=== PATIENT | female | born 1960 | race Caucasian/White ===

== ENCOUNTER 2023-01-22 11:44 | Emergency (ER) | payer OTHER, SELFPAY ==
[2023-01-22 12:09] VITALS: BP 151/83; PULSE 75; RESP 18; TEMP 36.1; O2SAT 94
--- NOTE | 2023-01-22 12:44 | ED.GENADULT ---
HPI - General Adult General Chief complaint: Upper Respiratory Infection Stated complaint: cough,nasal drainage Time Seen by Provider: 01/22/23 12:44 Source: patient Mode of arrival: ambulatory Limitations: no limitations History of Present Illness HPI narrative: 62-year-old female patient presents to the [facility] with complaints of cough, congestion and shortness of breath for the past 4 days. Patient does have a history of asthma but states she has gotten to a point where she no longer needed her inhaler so she does not have an inhaler at home that is not . Patient states she does take Claritin daily. Patient states that her symptoms started off as a dry sore throat and sneezing and has progressed to sinus congestion, clear drainage, cough, shortness of breath and cup coughing up brown sputum at times. Patient denies any fevers, body aches or chills that she is aware of but does have some fatigue. Patient states she has been taking some leftover Tessalon Perles that she had at home which has helped the cough at times. Related Data Home Medications Medication Instructions Recorded Confirmed alirocumab 75 mg/mL subcutaneous 75 mg subcut [id number] 01/22/23 01/22/23 pen injector (Praluent Pen) diltiazem HCl 180 mg 180 mg PO DAILY 01/22/23 01/22/23 capsule,extended release 24 hr duloxetine 60 mg capsule,delayed 60 mg PO DAILY 01/22/23 01/22/23 release ezetimibe 10 mg tablet 10 mg PO DAILY 01/22/23 01/22/23 hydrochlorothiazide 25 mg tablet 25 mg PO DAILY 01/22/23 01/22/23 lansoprazole 30 mg capsule,delayed 30 mg PO DAILY 01/22/23 01/22/23 release losartan 100 mg tablet 100 mg PO DAILY 01/22/23 01/22/23 meloxicam 15 mg tablet 15 mg PO DAILY 01/22/23 01/22/23 metformin 1,000 mg tablet 1,000 mg PO BID 01/22/23 01/22/23 metoprolol tartrate 50 mg tablet 50 mg PO DAILY 01/22/23 01/22/23 pioglitazone 30 mg tablet 30 mg PO DAILY 01/22/23 01/22/23 rivaroxaban 20 mg tablet (Xarelto) 20 mg PO DAILY 01/22/23 01/22/23 Allergies Allergy/AdvReac Type Severity Reaction Status Date / Time meclofenamic acid Allergy Severe Rash Verified 01/22/23 12:59 Review of Systems Review of Systems: CONSTITUTIONAL: Denies fever, chills, or sweats. EYES: Denies visual changes, redness, or discharge. ENT: Positive rhinorrhea, congestion, sore throat, denies otalgia. CARDIOVASCULAR: Denies chest pain, palpitations, or edema. RESPIRATORY: positivecough with dyspnea. GASTROINTESTINAL: Denies abdominal pain, nausea, vomiting, or diarrhea. GENITOURINARY: Denies dysuria or hematuria. SKIN: Denies rash or itching. MUSCULOSKELETAL: Denies back pain, joint pain, or myalgia. NEUROLOGIC: Denies headache, numbness, or weakness. PSYCHIATRIC: Denies anxiety or depression. [facility] Past Medical History Medical History Asthma Diabetes GERD (gastroesophageal reflux disease) Hypercholesteremia Hypertension Mitral valve prolapse Osteoarthritis Osteoporosis Ovarian cyst Comments At the time of my signature I agree with nursing past medical history, surgical, social, and family history. There is no relevant family history pertinent to the presenting complaint. Exam Narrative: GENERAL: ill-appearing, well-nourished, and in no acute distress. HEAD: Normocephalic, atraumatic. EYES: PERRLA and EOMI. ENT: Nares with erythema edema noted bilaterally, no rhinorrhea or epistaxis. Mucous membranes moist. bilateral TMs with slight fluid noted behind TM. Posterior pharynx with no erythema, tonsillar enlargement, exudates or lesions present. NECK: Supple. No lymphadenopathy CHEST: Patient talking and slightly broken sentences. There is decreased lung sounds and expiratory wheezing noted to bilateral upper lobes on auscultation. No tripoding HEART: Regular rate and rhythm. No murmur heard. Normal peripheral pulses. ABDOMEN: Soft, nontender, nondistended, normal active bowel sounds. EXTREMITIES: Nor
[2023-01-22] MEDS: IPRATROPIUM BR 0.02% INH SOLN 0.5 MG/2.5 ML VIAL INHALATION (12:59)
[2023-01-22] MEDS: ALBUTEROL SULFATE NEB 2.5 MG/3 ML INH INHALATION (12:59)
== END 2023-01-22 13:36 | disposition home or self-care (01) ==
PROVIDERS: Emergency Provider Nurse Practitioner Family; PCP Family Medicine
DX: J06.9 Acute upper respiratory infection, unspecified (principal); B97.89 Other viral agents as the cause of diseases classified elsewhere; J45.901 Unspecified asthma with (acute) exacerbation; E11.9 Type 2 diabetes mellitus without complications; I10 Essential (primary) hypertension; Z20.822 Contact with and (suspected) exposure to COVID-19; Z79.1 Long term (current) use of non-steroidal anti-inflammatories (NSAID)
CPT/HCPCS: 87081; 87426; 87880; 99213; C9803; G0463